=== PATIENT | female | born 1940 | race Caucasian/White ===

== ENCOUNTER 2018-02-19 11:24 | Observation (INO) ==
[2018-02-19] MEDS ORDERED: NITROGLYCERIN SL 0.4 MG TABLET SL PRN (11:52)
[2018-02-19 12:17] LABS: Basophils # 0.1 10*3/uL (0.0-0.2); Basophils % 0.8 % (0.0-0.8); Eosinophils # 0.3 10*3/uL (0.0-0.87); Hematocrit 34.4 VOL% (35.7-47.0); Hemoglobin 11.2 GM/DL (12.0-16.0); Immature Granulocytes % 1.5 %; Immature Granulocytes Absolute 0.09 #; Lymphocytes # 1.7 10*3/uL (1.4-4.0); Lymphocytes % 27.7 % (21.3-54.2); Mean Corpuscular HGB Conc 32.6 GM/DL (32-36); Mean Corpuscular Hemoglobin 29 PG (27-34); Mean Corpuscular Volume 87.8 FL (87-102); Mean Platelet Volume 9.4 FL (9.6-12.0); Monocytes # 0.5 10*3/uL (0.11-0.8); Monocytes % 8.3 % (1.7-12.7); Neutrophils # 3.6 10*3/uL (1.4-7.4); Neutrophils % 57.7 % (38.7-73.9); Platelet Count 205 T/CUMM (130-400); Red Blood Count 3.92 MC/CUMM (3.8-5.5); Red Cell Distribution Width 13.9 % (9.3-17.3); White Blood Count 6.2 T/CUMM (4-12)
[2018-02-19 12:35] LABS: Alanine Aminotransferase 17 U/L (13-56); Albumin 3.4 G/DL (3.4-5.0); Alkaline Phosphatase 42 U/L (45-117); Aspartate Amino Transferase 14 U/L (0-37); Bilirubin,Total < 0.39 MG/DL (0.2-1.0); Blood Urea Nitrogen 23 MG/DL (7-18); Calcium 8.4 MG/DL (8.5-10.1); Glucose 318 MG/DL (74-106); Osmolality,Calculated 294.4 MOS/KG (273-304); Potassium 3.7 MMOL/L (3.5-5.1); Sodium 140 MMOL/L (136-145); Total Protein 6.6 G/DL (6.4-8.3)
[2018-02-19 12:38] LABS: PT Patient Result 10.7 SECS; Partial Thromboplastin Time 23.6 SECS (0-40)
[2018-02-19] MEDS ORDERED: MAGNESIUM SULF RIDER 4 GM in PREMIX 1 EACH IV PRN (13:24)
[2018-02-19] MEDS ORDERED: MAGNESIUM SULF RIDER 2 GM in PREMIX 1 EACH IV PRN (13:24)
[2018-02-19] MEDS ORDERED: GLUCAGON 1 MG VIAL IM PRN (13:24)
[2018-02-19] MEDS ORDERED: ACETAMINOPHEN 325 MG TABLET PO PRN (13:24)
[2018-02-19] MEDS ORDERED: DEXTROSE 50% 25 GM/50 ML VIAL IV PRN (13:24)
[2018-02-19] MEDS ORDERED: ONDANSETRON 4 MG/2 ML VIAL IV PRN (13:24)
[2018-02-19] MEDS ORDERED: ZALEPLON 5 MG CAPSULE PO PRN (13:24)
[2018-02-19] MEDS ORDERED: SIMETHICONE CHEW 125 MG TABLET PO PRN (13:29)
[2018-02-19] MEDS ORDERED: POLYETHYLENE GLYCOL POWDER 17 GM PACK PO PRN (13:29)
[2018-02-19] MEDS ORDERED: cloNIDine 0.1 MG TABLET PO STA (13:57)
[2018-02-19] MEDS ORDERED: cloNIDine 0.1 MG TABLET ONE (13:58)
[2018-02-19 15:26] LABS: Troponin I Only < 0.015 NG/ML (0.00-0.045)
[2018-02-19] MEDS: ENOXAPARIN 80 MG/0.8 ML SYRINGE SUBCUT SCH (15:58)
[2018-02-19] MEDS: SODIUM CHLORIDE 0.45% 1,000 ML IV SCH (15:58)
[2018-02-19] MEDS: CILOSTAZOL 100 MG TABLET PO SCH (16:22)
[2018-02-19 17:52] LABS: Troponin I Only < 0.015 NG/ML (0.00-0.045)
[2018-02-19 20:14] LABS: Troponin I Only < 0.015 NG/ML (0.00-0.045)
[2018-02-19] MEDS: METOPROLOL TARTRATE 50 MG TABLET PO SCH (20:15)
[2018-02-19] MEDS ORDERED: ASPIRIN CHEW 81 MG TABLET PO ONE (21:30)
[2018-02-19] MEDS: traMADol 50 MG TABLET PO SCH (21:58)
[2018-02-19] MEDS: ACETAMINOPHEN 325 MG TABLET PO SCH (21:58)
[2018-02-19] MEDS: INSULIN REGULAR 100 UNIT/ML SUBCUT SCH (23:43)
[2018-02-20] MEDS: ENOXAPARIN 80 MG/0.8 ML SYRINGE SUBCUT SCH ×2 (02:20→12:33)
[2018-02-20 06:22] LABS: Troponin I Only < 0.015 NG/ML (0.00-0.045)
[2018-02-20 06:36] LABS: Risk Ratio 3.5
[2018-02-20] MEDS: INSULIN REGULAR 100 UNIT/ML SUBCUT SCH ×4 (08:41→21:34)
[2018-02-20] MEDS: CILOSTAZOL 100 MG TABLET PO SCH ×2 (08:42→16:16)
[2018-02-20] MEDS: OXYBUTYNIN XL 15 MG TABLET PO SCH (08:42)
[2018-02-20] MEDS: MULTIVITAMIN (CENTRUM) TABLET PO SCH (08:42)
[2018-02-20] MEDS: PANTOPRAZOLE 40 MG TABLET PO SCH (08:42)
[2018-02-20] MEDS: ACETAMINOPHEN 325 MG TABLET PO SCH ×2 (08:43→21:28)
[2018-02-20] MEDS: METOPROLOL TARTRATE 50 MG TABLET PO SCH ×2 (08:44→21:29)
[2018-02-20] MEDS: sitaGLIPtin 100 MG TABLET PO SCH (08:44)
[2018-02-20] MEDS: FUROSEMIDE 20 MG TABLET PO SCH (08:44)
[2018-02-20] MEDS: traMADol 50 MG TABLET PO SCH ×2 (08:44→21:29)
[2018-02-20] MEDS: SODIUM CHLORIDE 0.45% 1,000 ML IV SCH (08:50)
[2018-02-20] MEDS ORDERED: NON-FORMULARY MEDICATION (Fenofibric Acid (Choline) [Fenofibric Acid] 135 MG) PO SCH (09:00)
[2018-02-20] MEDS ORDERED: PRAVASTATIN 40 MG TABLET PO SCH (09:00)
[2018-02-20] MEDS ORDERED: ASPIRIN CHEW 81 MG TABLET PO SCH (09:00)
[2018-02-20] MEDS ORDERED: hydrALAZINE 20 MG/1 ML VIAL IV PRN (13:02)
[2018-02-20 14:33] LABS: Calcium 8.4 MG/DL (8.5-10.1); Osmolality,Calculated 283.5 MOS/KG (273-304); Potassium 3.6 MMOL/L (3.5-5.1)
[2018-02-20] MEDS: NITROGLYCERIN 2% OINT 1 INCH/GM PACK TOP SCH (21:34)
[2018-02-21] MEDS: ENOXAPARIN 80 MG/0.8 ML SYRINGE SUBCUT SCH (02:24)
[2018-02-21] MEDS: NITROGLYCERIN 2% OINT 1 INCH/GM PACK TOP SCH ×2 (03:26→09:11)
[2018-02-21 05:13] LABS: Basophils # 0.1 10*3/uL (0.0-0.2); Basophils % 0.7 % (0.0-0.8); Eosinophils # 0.5 10*3/uL (0.0-0.87); Eosinophils % 6.9 % (0.00-10.9); Hematocrit 32.9 VOL% (35.7-47.0); Hemoglobin 10.9 GM/DL (12.0-16.0); Immature Granulocytes % 1.6 %; Immature Granulocytes Absolute 0.11 #; Lymphocytes # 2.2 10*3/uL (1.4-4.0); Lymphocytes % 32.2 % (21.3-54.2); Mean Corpuscular HGB Conc 33.1 GM/DL (32-36); Mean Corpuscular Hemoglobin 29 PG (27-34); Mean Corpuscular Volume 86.8 FL (87-102); Mean Platelet Volume 9.5 FL (9.6-12.0); Monocytes # 0.7 10*3/uL (0.11-0.8); Monocytes % 9.8 % (1.7-12.7); Neutrophils # 3.3 10*3/uL (1.4-7.4); Neutrophils % 48.8 % (38.7-73.9); Platelet Count 220 T/CUMM (130-400); Red Blood Count 3.79 MC/CUMM (3.8-5.5); Red Cell Distribution Width 13.9 % (9.3-17.3); White Blood Count 6.8 T/CUMM (4-12)
[2018-02-21 05:46] LABS: Calcium 8.4 MG/DL (8.5-10.1); Osmolality,Calculated 279.4 MOS/KG (273-304); Potassium 3.9 MMOL/L (3.5-5.1)
[2018-02-21] MEDS ORDERED: ASPIRIN EC 81 MG TABLET PO SCH (09:00)
[2018-02-21] MEDS: MULTIVITAMIN (CENTRUM) TABLET PO SCH (09:01)
[2018-02-21] MEDS: FUROSEMIDE 20 MG TABLET PO SCH (09:02)
[2018-02-21] MEDS: OXYBUTYNIN XL 15 MG TABLET PO SCH (09:03)
[2018-02-21] MEDS: CILOSTAZOL 100 MG TABLET PO SCH (09:03)
[2018-02-21] MEDS: traMADol 50 MG TABLET PO SCH (09:03)
[2018-02-21] MEDS: sitaGLIPtin 100 MG TABLET PO SCH (09:03)
[2018-02-21] MEDS: INSULIN REGULAR 100 UNIT/ML SUBCUT SCH ×2 (09:04→12:53)
[2018-02-21] MEDS: METOPROLOL TARTRATE 50 MG TABLET PO SCH (09:04)
[2018-02-21] MEDS: PANTOPRAZOLE 40 MG TABLET PO SCH (09:04)
[2018-02-21] MEDS: ACETAMINOPHEN 325 MG TABLET PO SCH (09:04)
[2018-02-21] MEDS ORDERED: LOSARTAN 50 MG TABLET PO SCH (09:30)
[2018-02-21] MEDS ORDERED: ATORVASTATIN 40 MG TABLET PO SCH (21:00)
[2018-02-22 15:31] VITALS: BP 160/64
== END 2018-02-21 14:53 | disposition home or self-care (01) ==
LOC: N.ED 11:24 → N.EDINP 11:24 → N.TELEN 14:06
PROVIDERS: ADMIT Family Medicine; ATTEND Family Medicine